=== PATIENT | male | born 1960 | race Two or more races ===

== ENCOUNTER 2020-07-03 09:32 | Emergency (ER) | payer SELFPAY ==
[~2020-07-03] VITALS: Ht 162.6 cm; Wt 72.6 kg
[2020-07-03 09:34] VITALS: BP 153/99
[2020-07-03] MEDS ORDERED: ACETAMINOPHEN/CODEINE#3 (300/30mg) TAB PO ONE (10:00)
== END 2020-07-03 11:11 | disposition home or self-care (01) ==
LOC: ER 09:32
DX: S52.614A Nondisplaced fracture of right ulna styloid process, initial encounter for closed fracture (principal); S52.501A Unspecified fracture of the lower end of right radius, initial encounter for closed fracture; F17.210 Nicotine dependence, cigarettes, uncomplicated; X58.XXXA Exposure to other specified factors, initial encounter; Y93.89 Activity, other specified; Y92.89 Other specified places as the place of occurrence of the external cause; Y99.8 Other external cause status
CPT/HCPCS: 29125; 73080; 73110; 73130